=== PATIENT | female | born 1970 ===

== ENCOUNTER 2020-08-28 09:23 | Emergency (ER) | payer OTHER ==
[~2020-08-28] VITALS: Ht 152.4 cm; Wt 79.4 kg
[2020-08-28] MEDS ORDERED: XANAX2 MG (09:47)
[2020-08-28] MEDS ORDERED: MELATONIN5 M2 (09:48)
[2020-08-28] MEDS ORDERED: VISTARIL50 MG PO (13:44)
[2020-08-28] MEDS ORDERED: ONCE DAILY1 EACH PO (13:44)
== END 2020-08-28 14:23 | disposition home or self-care (01) ==
LOC: ER 09:23 → EDBD 09:40 → ER 09:40
DX: R53.1 Weakness (principal); F06.4 Anxiety disorder due to known physiological condition; Z03.818 Encounter for observation for suspected exposure to other biological agents ruled out